=== PATIENT | female | born 1960 ===

== ENCOUNTER 2017-07-18 06:31 | Inpatient (IN) ==
[~2017-07-18 06:31] MED LIST: MAGNESIUM SULF RIDER 2 GM in PREMIX 1 EACH IV PRN; POTASSIUM CHLORIDE RIDER 10 MEQ in PREMIX 1 EACH IV PRN
[2017-07-18] MEDS ORDERED: diphenhydrAMINE CAP 25 MG CAPSULE PO ONE (07:54)
[2017-07-18] MEDS ORDERED: DIAZEPAM 5 MG TABLET PO ONE (07:54)
[2017-07-18] MEDS ORDERED: DIAZEPAM 5 MG TABLET ONE (08:07)
[2017-07-18] MEDS ORDERED: diphenhydrAMINE CAP 25 MG CAPSULE ONE (08:07)
[2017-07-18] MEDS ORDERED: DEXTROSE 50% 25 GM/50 ML VIAL IV PRN (08:17)
[2017-07-18] MEDS ORDERED: ASPIRIN 325 MG TABLET PO ONE (08:20)
[2017-07-18] MEDS ORDERED: SODIUM CHLORIDE 0.9% 1,000 ML IV SCH ×3 (08:30→23:22)
[2017-07-18] MEDS ORDERED: MEPERIDINE 25 MG/1 ML VIAL ONE (08:35)
[2017-07-18] MEDS ORDERED: LIDOCAINE 1% 20 ML VIAL ONE (08:35)
[2017-07-18] MEDS ORDERED: MIDAZOLAM 2 MG/2 ML VIAL ONE (08:35)
[2017-07-18] MEDS ORDERED: HEPARIN 5,000 UNIT/1 ML VIAL ONE (09:00)
[2017-07-18] MEDS ORDERED: NITROGLYCERIN SL 0.4 MG TABLET SL PRN (10:00)
[2017-07-18] MEDS ORDERED: CEFUROXIME INJ 1,500 MG in SODIUM CHLORIDE 0.9% 50 ML IV ONE (10:34)
[2017-07-18] MEDS: CARVEDILOL 12.5 MG TABLET PO SCH ×2 (13:35→21:42)
[2017-07-18 15:27] LABS: Basophils % 0.5 % (0.0-0.8); Eosinophils # 0.1 10*3/uL (0.0-0.87); Eosinophils % 1.4 % (0.00-10.9); Hematocrit 32.1 VOL% (35.7-47.0); Hemoglobin 11.4 GM/DL (12.0-16.0); Immature Granulocytes % 0.3 %; Immature Granulocytes Absolute 0.02 #; Lymphocytes # 1.7 10*3/uL (1.4-4.0); Lymphocytes % 26.7 % (21.3-54.2); Mean Corpuscular HGB Conc 35.5 GM/DL (32-36); Mean Corpuscular Hemoglobin 30 PG (27-34); Mean Corpuscular Volume 83.6 FL (87-102); Mean Platelet Volume 9.1 FL (9.6-12.0); Monocytes # 0.7 10*3/uL (0.11-0.8); Neutrophils # 3.8 10*3/uL (1.4-7.4); Neutrophils % 60.1 % (38.7-73.9); Platelet Count 255 T/CUMM (130-400); Red Blood Count 3.84 MC/CUMM (3.8-5.5); Red Cell Distribution Width 12.6 % (9.3-17.3); White Blood Count 6.3 T/CUMM (4-12)
[2017-07-18 15:58] LABS: Calcium 8.4 MG/DL (8.5-10.1); Magnesium 2.3 MG/DL (1.8-2.4); Osmolality,Calculated 277.8 MOS/KG (273-304); Potassium 3.4 MMOL/L (3.5-5.1)
[2017-07-18] MEDS: SODIUM BICARB INJ 50 MEQ in SODIUM CHLORIDE 0.45% 1,000 ML IV SCH (16:13)
[2017-07-18] MEDS: GABAPENTIN 100 MG CAPSULE PO SCH ×2 (16:13→21:42)
[2017-07-18] MEDS: CHLORHEXIDINE 4% SOLN 118 ML BOTTLE TOP SCH ×2 (16:14→21:43)
[2017-07-18] MEDS ORDERED: CARVEDILOL 3.125 MG TABLET PO SCH (21:00)
[2017-07-18] MEDS ORDERED: ATORVASTATIN 40 MG TABLET PO SCH (21:00)
[2017-07-18] MEDS: CHLORHEXIDINE 0.12% ORAL RINSE 60 ML BOTTLE SWISH/SPIT SCH (22:55)
[2017-07-19] MEDS ORDERED: TISSUE ADHESIVE 1 EACH APPLICATOR TOP ONE (04:40)
[2017-07-19] MEDS ORDERED: PAPAVERINE 60 MG/2 ML VIAL ONE (04:40)
[2017-07-19] MEDS ORDERED: VANCOMYCIN 1,000 MG VIAL ONE (04:40)
[2017-07-19] MEDS ORDERED: FAMOTIDINE 20 MG TABLET PO ONE (05:30)
[2017-07-19] MEDS ORDERED: SODIUM CHLORIDE 0.9% 1,000 ML IV SCH (05:30)
[2017-07-19] MEDS ORDERED: TRANEXAMIC ACID 1,000 MG/10 ML VIAL IV ONE (05:48)
[2017-07-19] MEDS ORDERED: CEFUROXIME INJ 1,500 MG in SODIUM CHLORIDE 0.9% 50 ML IV ONE (06:00)
[2017-07-19] MEDS ORDERED: LORazepam 1 MG TABLET PO ONE (06:00)
[2017-07-19] MEDS ORDERED: FUROSEMIDE 20 MG/2 ML VIAL ONE ×2 (06:46→10:46)
[2017-07-19] MEDS ORDERED: CALCIUM CHLORIDE 1,000 MG/10 ML VIAL IV ONE (06:46)
[2017-07-19] MEDS ORDERED: PHENYLEPHRINE 1 MG/10 ML SYRINGE IV ONE (06:46)
[2017-07-19] MEDS ORDERED: LIDOCAINE 2% 5 ML VIAL ONE (06:46)
[2017-07-19] MEDS ORDERED: VECURONIUM 10 MG VIAL IV ONE (06:46)
[2017-07-19 07:41] LABS: ABG HCO3 23.6 MMOL/L (20-26); ABG Oxygen Saturation 99.9 % (95-100); ABG PCO2 35.9 MM HG (35-48); ABG PH 7.418 (7.35-7.45); ABG TCO2 21.2 MMOL/L (23-27); Glucose Heart Surgery 219 MG/DL (74-106); Hematocrit Heart Surgery 29.6 PERCENT (37-47); Hemoglobin Heart Surgery 9.6 G/DL (12.0-16.0); Ionized Calcium Arterial 1.07 MMOL/L (1.21-1.46); PCO2 Patient Temp Arterial 35.9 MMHG; PH Patient Temp Arterial 7.418; Patient Temperature 37 CELCIUS; Potassium Heart/CVR 3.2 MMOL/L (3.5-5.1); Sodium Heart/CVR 139 MMOL/L (135-145)
[2017-07-19 07:59] LABS: Apearance,Urine CLEAR (Clear); Bilirubin,Urine Negative (Negative); Blood, Urine Small mg/dL (Negative); Glucose,Urine (UA) 150 mg/dL (Negative); Hyaline Casts,Urine 1 /LPF (0-3); Ketones,Urine Negative (Negative); Mucus,Urine Occasional /LPF (Occasional); Nitrite,Urine Negative (Negative); Protein,Urine 100 MG/DL; RBC,Urine 2 /HPF (0-4); Squamous Epithelial Cell,Urine Occasional /HPF (0-10); Urine Color Yellow (Yellow); Urine Specific Gravity 1.011 (1.001-1.035); Urine Urobilinogen < 2.0 EU/DL (0.2-1.0)
[2017-07-19] MEDS ORDERED: LISINOPRIL 20 MG TABLET PO SCH (09:00)
[2017-07-19] MEDS ORDERED: hydroCHLOROthiazide 12.5 MG CAPSULE PO SCH (09:00)
[2017-07-19] MEDS ORDERED: amLODIPine 5 MG TABLET PO SCH (09:00)
[2017-07-19] MEDS ORDERED: MULTIVITAMIN PO SCH (09:00)
[2017-07-19] MEDS ORDERED: MAGNESIUM OXIDE 400 MG TABLET PO SCH (09:00)
[2017-07-19] MEDS ORDERED: ASPIRIN 325 MG TABLET PO SCH (09:00)
[2017-07-19] MEDS ORDERED: SODIUM BICARBONATE 50 MEQ/50 ML SYRINGE IV ONE ×2 (09:04→10:45)
[2017-07-19] MEDS ORDERED: POTASSIUM CHLORIDE RIDER 100 ML IV ONE (09:05)
[2017-07-19] MEDS ORDERED: CALCIUM CHLORIDE 1,000 MG/10 ML SYRINGE IV ONE (09:05)
[2017-07-19] MEDS ORDERED: EPINEPHrine 1 MG/10 ML SYRINGE ONE (09:05)
[2017-07-19] MEDS ORDERED: ALBUMIN 5% 12.5 GM/250 ML VIAL IV ONE ×2 (09:05→10:58)
[2017-07-19 09:11] LABS: Hematocrit Heart Surgery 26.8 PERCENT (37-47); Hemoglobin Heart Surgery 8.6 G/DL (12.0-16.0); PCO2 Patient Temp Venous 34.4 MM HG; PH Patient Temp Venous 7.455; PO2 Patient Temp Venous 38.8 MM HG; Potassium Heart/CVR 4.5 MMOL/L (3.5-5.1); VBG Base Excess 0.7 MEQ/L (0-4); VBG HCO3 24.8 MEQ/L (24-28); VBG Oxygen Saturation 82.6 %; VBG PCO2 37.9 MMHG (41-51); VBG PH 7.426; VBG PO2 44.6 MMHG (17-40)
[2017-07-19 09:41] LABS: Hematocrit Heart Surgery 24.5 PERCENT (37-47); Hemoglobin Heart Surgery 7.9 G/DL (12.0-16.0); PCO2 Patient Temp Venous 30.6 MM HG; PH Patient Temp Venous 7.49; PO2 Patient Temp Venous 37.3 MM HG; Potassium Heart/CVR 3.6 MMOL/L (3.5-5.1); VBG Base Excess 0.5 MEQ/L (0-4); VBG HCO3 24.7 MEQ/L (24-28); VBG Oxygen Saturation 84.4 %; VBG PCO2 35.4 MMHG (41-51); VBG PH 7.445; VBG PO2 45.8 MMHG (17-40)
[2017-07-19] MEDS ORDERED: INSULIN REGULAR DRIP 100 ML IV ONE (10:25)
[2017-07-19] MEDS ORDERED: THROMBIN TOPICAL (RECOMBINANT) 5,000 UNIT VIAL TOP ONE (10:32)
[2017-07-19] MEDS: CARVEDILOL 12.5 MG TABLET PO SCH (10:36)
[2017-07-19] MEDS: CHLORHEXIDINE 0.12% ORAL RINSE 60 ML BOTTLE SWISH/SPIT SCH ×2 (10:36→22:44)
[2017-07-19] MEDS: CHLORHEXIDINE 4% SOLN 118 ML BOTTLE TOP SCH (10:36)
[2017-07-19] MEDS: GABAPENTIN 100 MG CAPSULE PO SCH (10:36)
[2017-07-19 10:44] LABS: ABG HCO3 23.6 MMOL/L (20-26); ABG Oxygen Saturation 99.9 % (95-100); ABG PCO2 36.1 MM HG (35-48); ABG PH 7.417 (7.35-7.45); ABG TCO2 21.6 MMOL/L (23-27); Glucose Heart Surgery 203 MG/DL (74-106); Hematocrit Heart Surgery 25.8 PERCENT (37-47); Hemoglobin Heart Surgery 8.3 G/DL (12.0-16.0); Ionized Calcium Arterial 0.95 MMOL/L (1.21-1.46); PCO2 Patient Temp Arterial 36.1 MMHG; PH Patient Temp Arterial 7.417; Patient Temperature 37 CELCIUS; Potassium Heart/CVR 4.1 MMOL/L (3.5-5.1); Sodium Heart/CVR 136 MMOL/L (135-145)
[2017-07-19] MEDS ORDERED: MANNITOL 12.5 GM/50 ML VIAL IV ONE (10:45)
[2017-07-19] MEDS ORDERED: DEXTROSE 5% KCL 20 MEQ 20 MEQ/1,000 ML BAG IV ONE (10:45)
[2017-07-19] MEDS ORDERED: HEPARIN 10,000 UNIT/10 ML VIAL ONE (10:45)
[2017-07-19] MEDS ORDERED: MAGNESIUM SULFATE 1 GM/2 ML VIAL ONE (10:45)
[2017-07-19] MEDS ORDERED: methylPREDNISolone SOD SUC 1,000 MG/8 ML VIAL ONE (10:45)
[2017-07-19] MEDS ORDERED: ALBUMIN 25% 25 GM/100 ML VIAL IV ONE (10:45)
[2017-07-19] MEDS ORDERED: POTASSIUM CHLORIDE 20 MEQ/10 ML VIAL ONE (10:46)
[2017-07-19] MEDS ORDERED: PROTAMINE SULFATE 50 MG/5 ML VIAL IV ONE (10:46)
[2017-07-19] MEDS: SODIUM CHLORIDE 0.45% 1,000 ML IV SCH ×2 (11:20→11:25)
[2017-07-19] MEDS ORDERED: ACETAMINOPHEN 650 MG SUPP RECTAL PRN (11:37)
[2017-07-19] MEDS ORDERED: DEXTROSE 50% 25 GM/50 ML VIAL IV PRN ×2 (11:37)
[2017-07-19] MEDS ORDERED: ALBUMIN 5% 12.5 GM in PREMIX 1 EACH IV PRN (11:37)
[2017-07-19] MEDS ORDERED: MAGNESIUM SULF RIDER 2 GM in PREMIX 1 EACH IV PRN (11:37)
[2017-07-19] MEDS ORDERED: MIDAZOLAM 2 MG/2 ML VIAL IV PRN (11:37)
[2017-07-19] MEDS ORDERED: CHLORHEXIDINE 4% SOLN 118 ML BOTTLE TOP PRN (11:37)
[2017-07-19] MEDS ORDERED: ONDANSETRON 4 MG/2 ML VIAL IV PRN (11:37)
[2017-07-19] MEDS ORDERED: SODIUM CHLORIDE 0.9% 250 ML IV PRN (11:37)
[2017-07-19] MEDS ORDERED: CALCIUM CHLORIDE 1,000 MG/10 ML SYRINGE IV PRN (11:37)
[2017-07-19] MEDS ORDERED: POTASSIUM CHLORIDE RIDER 10 MEQ in PREMIX 1 EACH IV PRN (11:37)
[2017-07-19] MEDS ORDERED: MORPHINE 10 MG/1 ML VIAL IV PRN (11:37)
[2017-07-19] MEDS ORDERED: MAGNESIUM SULF RIDER 4 GM in PREMIX 1 EACH IV PRN (11:37)
[2017-07-19] MEDS ORDERED: SUFentanil 250 MCG/5 ML AMP ONE (11:41)
[2017-07-19] MEDS ORDERED: SODIUM CHLORIDE 0.9% 200 ML IV ONE (11:42)
[2017-07-19] MEDS ORDERED: SODIUM CHLORIDE 0.9% 750 ML IV ONE (11:42)
[2017-07-19] MEDS ORDERED: SODIUM CHLORIDE 0.9% 2,000 ML IV ONE (11:42)
[2017-07-19] MEDS ORDERED: SEVOFLURANE 1 UNIT/15 MINUTE INH ONE (11:42)
[2017-07-19] MEDS ORDERED: MIDAZOLAM 10 MG/2 ML VIAL ONE (11:42)
[2017-07-19] MEDS ORDERED: LACTATED RINGERS 1,000 ML IV ONE (11:42)
[2017-07-19 11:55] LABS: ABG Base Excess -1.2 MMOL/L (-2.5-2.5); ABG HCO3 23.4 MMOL/L (20-26); ABG PCO2 33.2 MM HG (35-48); ABG PH 7.438 (7.35-7.45); ABG PO2 94.2 MM HG (80-95); ABG TCO2 20.3 MMOL/L (23-27); Glucose Heart Surgery 219 MG/DL (74-106); Hematocrit Heart Surgery 31.1 PERCENT (37-47); Hemoglobin Heart Surgery 10.1 G/DL (12.0-16.0); Potassium Heart/CVR 3.8 MMOL/L (3.5-5.1)
[2017-07-19 11:56] LABS: Basophils % 0.3 % (0.0-0.8); Eosinophils # 0.1 10*3/uL (0.0-0.87); Eosinophils % 0.8 % (0.00-10.9); Hematocrit 28.3 VOL% (35.7-47.0); Immature Granulocytes % 0.7 %; Immature Granulocytes Absolute 0.07 #; Lymphocytes % 9.8 % (21.3-54.2); Mean Corpuscular HGB Conc 35.3 GM/DL (32-36); Mean Corpuscular Hemoglobin 30 PG (27-34); Mean Platelet Volume 8.9 FL (9.6-12.0); Monocytes # 0.5 10*3/uL (0.11-0.8); Monocytes % 4.7 % (1.7-12.7); Neutrophils # 8.7 10*3/uL (1.4-7.4); Neutrophils % 83.7 % (38.7-73.9); Platelet Count 124 T/CUMM (130-400); Red Blood Count 3.37 MC/CUMM (3.8-5.5); Red Cell Distribution Width 13.2 % (9.3-17.3); White Blood Count 10.4 T/CUMM (4-12)
[2017-07-19] MEDS: POTASSIUM CHLORIDE RIDER 20 MEQ in PREMIX 1 EACH IV PRN ×2 (12:00→16:02)
[2017-07-19 12:04] LABS: INR 1.1; PT Patient Result 11.6 SECS
[2017-07-19] MEDS: INSULIN REGULAR 100 UNIT/ML IV PRN ×2 (12:21→13:13)
[2017-07-19 12:30] LABS: Band Neutrophils 4 % (0-10); Giant Platelets Few; Hypochromasia Slight; Lymphocytes 7 % (20-55); Platelet Estimate Normal; Segmented Neutrophils 87 % (50-85); Total Cells Counted 100
[2017-07-19] MEDS ORDERED: INSULIN REGULAR DRIP 100 ML IV SCH (12:30)
[2017-07-19 12:33] LABS: Calcium 7.1 MG/DL (8.5-10.1); Magnesium 2.4 MG/DL (1.8-2.4); Osmolality,Calculated 287.3 MOS/KG (273-304); Potassium 3.9 MMOL/L (3.5-5.1)
[2017-07-19 12:39] LABS: Lactic Acid 0.9 MMOL/L (0.4-2.0)
[2017-07-19] MEDS: SODIUM BICARB INJ 50 MEQ in SODIUM CHLORIDE 0.45% 1,000 ML IV SCH (16:04)
[2017-07-19 17:46] LABS: ABG Base Excess 0.1 MMOL/L (-2.5-2.5); ABG HCO3 24.3 MMOL/L (20-26); ABG Oxygen Saturation 97.5 % (95-100); ABG PCO2 37.8 MM HG (35-48); ABG PH 7.426 (7.35-7.45); ABG PO2 105.5 MM HG (80-95); ABG TCO2 25.5 MMOL/L (23-27); Glucose Heart Surgery 110 MG/DL (74-106); Hemoglobin Heart Surgery 11.8 G/DL (12.0-16.0); Potassium Heart/CVR 4.2 MMOL/L (3.5-5.1)
[2017-07-19] MEDS: MORPHINE 2 MG/1 ML SYRINGE IV PRN ×2 (19:10→22:44)
[2017-07-19] MEDS: CEFUROXIME INJ 1,500 MG in SODIUM CHLORIDE 0.9% 50 ML IV SCH (19:13)
[2017-07-19] MEDS ORDERED: METOPROLOL TARTRATE 5 MG/5 ML VIAL IV PRN (19:28)
[2017-07-20] MEDS: INSULIN REGULAR 100 UNIT/ML SUBCUT SCH ×4 (00:30→18:08)
[2017-07-20] MEDS: SODIUM CHLORIDE 0.45% 1,000 ML IV SCH ×2 (00:31→08:52)
[2017-07-20 03:53] LABS: Basophils % 0.1 % (0.0-0.8); Hematocrit 31.7 VOL% (35.7-47.0); Hemoglobin 11.1 GM/DL (12.0-16.0); Immature Granulocytes % 0.4 %; Immature Granulocytes Absolute 0.06 #; Lymphocytes # 1.1 10*3/uL (1.4-4.0); Lymphocytes % 7.7 % (21.3-54.2); Mean Corpuscular Hemoglobin 30 PG (27-34); Mean Corpuscular Volume 84.3 FL (87-102); Mean Platelet Volume 9.5 FL (9.6-12.0); Monocytes # 0.8 10*3/uL (0.11-0.8); Monocytes % 5.9 % (1.7-12.7); Neutrophils # 11.8 10*3/uL (1.4-7.4); Neutrophils % 85.9 % (38.7-73.9); Platelet Count 157 T/CUMM (130-400); Red Blood Count 3.76 MC/CUMM (3.8-5.5); Red Cell Distribution Width 13.4 % (9.3-17.3); White Blood Count 13.7 T/CUMM (4-12)
[2017-07-20 04:11] LABS: Calcium 7.4 MG/DL (8.5-10.1); Osmolality,Calculated 285.4 MOS/KG (273-304); Potassium 4.3 MMOL/L (3.5-5.1)
[2017-07-20] MEDS: MORPHINE 2 MG/1 ML SYRINGE IV PRN ×4 (04:13→22:00)
[2017-07-20 05:01] LABS: Platelet Estimate Adequate
[2017-07-20] MEDS: CEFUROXIME INJ 1,500 MG in SODIUM CHLORIDE 0.9% 50 ML IV SCH (07:04)
[2017-07-20] MEDS: CHLORHEXIDINE 0.12% ORAL RINSE 60 ML BOTTLE SWISH/SPIT SCH ×2 (10:03→22:09)
[2017-07-20] MEDS: CARVEDILOL 3.125 MG TABLET PO SCH ×2 (10:04→21:58)
[2017-07-20] MEDS: CLOPIDOGREL 75 MG TABLET PO SCH (10:04)
[2017-07-20] MEDS: ATORVASTATIN 40 MG TABLET PO SCH ×2 (11:50→21:59)
[2017-07-20] MEDS: FUROSEMIDE 40 MG TABLET PO SCH (11:51)
[2017-07-20] MEDS: ASPIRIN EC 325 MG TABLET PO SCH (11:51)
[2017-07-21] MEDS: CEFUROXIME INJ 1,500 MG in SODIUM CHLORIDE 0.9% 50 ML IV SCH (01:05)
[2017-07-21] MEDS: MORPHINE 2 MG/1 ML SYRINGE IV PRN ×5 (01:35→22:09)
[2017-07-21] MEDS: INSULIN REGULAR 100 UNIT/ML SUBCUT SCH ×4 (01:35→18:08)
[2017-07-21 05:56] LABS: Basophils % 0.2 % (0.0-0.8); Hematocrit 27.5 VOL% (35.7-47.0); Hemoglobin 9.3 GM/DL (12.0-16.0); Immature Granulocytes % 0.4 %; Immature Granulocytes Absolute 0.05 #; Lymphocytes # 1.3 10*3/uL (1.4-4.0); Lymphocytes % 11.9 % (21.3-54.2); Mean Corpuscular HGB Conc 33.8 GM/DL (32-36); Mean Corpuscular Hemoglobin 29 PG (27-34); Mean Corpuscular Volume 86.5 FL (87-102); Mean Platelet Volume 10.1 FL (9.6-12.0); Monocytes # 1.2 10*3/uL (0.11-0.8); Monocytes % 10.6 % (1.7-12.7); Neutrophils # 8.6 10*3/uL (1.4-7.4); Neutrophils % 76.9 % (38.7-73.9); Platelet Count 153 T/CUMM (130-400); Red Blood Count 3.18 MC/CUMM (3.8-5.5); Red Cell Distribution Width 13.6 % (9.3-17.3); White Blood Count 11.1 T/CUMM (4-12)
[2017-07-21 06:15] LABS: Calcium 7.4 MG/DL (8.5-10.1); Magnesium 2.2 MG/DL (1.8-2.4); Osmolality,Calculated 278.7 MOS/KG (273-304); Potassium 3.6 MMOL/L (3.5-5.1)
[2017-07-21 06:27] LABS: Calcium 7.6 MG/DL (8.5-10.1); Magnesium 2.1 MG/DL (1.8-2.4); Osmolality,Calculated 280.5 MOS/KG (273-304); Potassium 3.6 MMOL/L (3.5-5.1)
[2017-07-21] MEDS: CLOPIDOGREL 75 MG TABLET PO SCH (09:12)
[2017-07-21] MEDS: FUROSEMIDE 40 MG TABLET PO SCH (09:12)
[2017-07-21] MEDS: CHLORHEXIDINE 0.12% ORAL RINSE 60 ML BOTTLE SWISH/SPIT SCH ×2 (09:13→22:08)
[2017-07-21] MEDS: CARVEDILOL 3.125 MG TABLET PO SCH ×2 (09:13→22:08)
[2017-07-21] MEDS: ASPIRIN EC 325 MG TABLET PO SCH (09:13)
[2017-07-21] MEDS ORDERED: ZOLPIDEM 5 MG TABLET PO PRN (20:54)
[2017-07-21] MEDS: ATORVASTATIN 40 MG TABLET PO SCH (22:07)
[2017-07-22] MEDS: INSULIN REGULAR 100 UNIT/ML SUBCUT SCH ×7 (01:11→21:36)
[2017-07-22 05:30] LABS: Basophils % 0.3 % (0.0-0.8); Eosinophils % 0.3 % (0.00-10.9); Hematocrit 27.2 VOL% (35.7-47.0); Hemoglobin 9.1 GM/DL (12.0-16.0); Immature Granulocytes % 0.8 %; Immature Granulocytes Absolute 0.08 #; Lymphocytes # 1.4 10*3/uL (1.4-4.0); Lymphocytes % 13.3 % (21.3-54.2); Mean Corpuscular HGB Conc 33.5 GM/DL (32-36); Mean Corpuscular Hemoglobin 29 PG (27-34); Mean Corpuscular Volume 86.6 FL (87-102); Mean Platelet Volume 10.2 FL (9.6-12.0); Monocytes # 1.1 10*3/uL (0.11-0.8); Monocytes % 10.5 % (1.7-12.7); Neutrophils # 7.8 10*3/uL (1.4-7.4); Neutrophils % 74.8 % (38.7-73.9); Platelet Count 174 T/CUMM (130-400); Red Blood Count 3.14 MC/CUMM (3.8-5.5); Red Cell Distribution Width 13.4 % (9.3-17.3); White Blood Count 10.4 T/CUMM (4-12)
[2017-07-22 05:47] LABS: Calcium 7.5 MG/DL (8.5-10.1); Magnesium 2.3 MG/DL (1.8-2.4); Osmolality,Calculated 286.7 MOS/KG (273-304); Potassium 3.7 MMOL/L (3.5-5.1)
[2017-07-22] MEDS ORDERED: FUROSEMIDE 40 MG/4 ML VIAL IV ONE (09:02)
[2017-07-22] MEDS: CARVEDILOL 3.125 MG TABLET PO SCH (10:31)
[2017-07-22] MEDS: FUROSEMIDE 40 MG TABLET PO SCH (10:32)
[2017-07-22] MEDS: CLOPIDOGREL 75 MG TABLET PO SCH (10:32)
[2017-07-22] MEDS: CHLORHEXIDINE 0.12% ORAL RINSE 60 ML BOTTLE SWISH/SPIT SCH ×2 (10:33→21:38)
[2017-07-22] MEDS: ASPIRIN EC 325 MG TABLET PO SCH (10:33)
[2017-07-22] MEDS ORDERED: CARVEDILOL 12.5 MG TABLET PO SCH (11:05)
[2017-07-22] MEDS: MORPHINE 2 MG/1 ML SYRINGE IV PRN (14:35)
[2017-07-22] MEDS ORDERED: SODIUM CHLORIDE 0.65% NASAL SPRAY 45 ML BOTTLE BOTH NARES PRN (15:07)
[2017-07-22] MEDS: CYCLOBENZAPRINE 10 MG TABLET PO SCH (18:25)
[2017-07-22] MEDS ORDERED: INSULIN GLARGINE 100 UNIT/ML SUBCUT SCH (21:00)
[2017-07-22] MEDS: ATORVASTATIN 40 MG TABLET PO SCH (21:33)
[2017-07-22] MEDS: INSULIN GLARGINE 100 UNIT/ML SUBCUT SCH (21:34)
[2017-07-23 03:09] LABS: Basophils % 0.3 % (0.0-0.8); Eosinophils # 0.1 10*3/uL (0.0-0.87); Eosinophils % 0.9 % (0.00-10.9); Hematocrit 25.8 VOL% (35.7-47.0); Hemoglobin 8.8 GM/DL (12.0-16.0); Immature Granulocytes % 0.9 %; Immature Granulocytes Absolute 0.09 #; Lymphocytes # 1.5 10*3/uL (1.4-4.0); Lymphocytes % 15.8 % (21.3-54.2); Mean Corpuscular HGB Conc 34.1 GM/DL (32-36); Mean Corpuscular Hemoglobin 29 PG (27-34); Mean Corpuscular Volume 84.6 FL (87-102); Mean Platelet Volume 9.8 FL (9.6-12.0); Monocytes # 0.9 10*3/uL (0.11-0.8); Monocytes % 8.8 % (1.7-12.7); Neutrophils # 7.2 10*3/uL (1.4-7.4); Neutrophils % 73.3 % (38.7-73.9); Platelet Count 208 T/CUMM (130-400); Red Blood Count 3.05 MC/CUMM (3.8-5.5); Red Cell Distribution Width 13.3 % (9.3-17.3); White Blood Count 9.8 T/CUMM (4-12)
[2017-07-23 04:14] LABS: Calcium 7.5 MG/DL (8.5-10.1); Magnesium 2.4 MG/DL (1.8-2.4); Osmolality,Calculated 282.4 MOS/KG (273-304); Potassium 3.3 MMOL/L (3.5-5.1)
[2017-07-23] MEDS ORDERED: INSULIN DETEMIR 100 UNIT/ML SUBCUT SCH (09:00)
[2017-07-23] MEDS: ASPIRIN EC 325 MG TABLET PO SCH (10:23)
[2017-07-23] MEDS: CARVEDILOL 3.125 MG TABLET PO SCH ×2 (10:24→21:35)
[2017-07-23] MEDS: CYCLOBENZAPRINE 10 MG TABLET PO SCH (10:24)
[2017-07-23] MEDS: FUROSEMIDE 40 MG TABLET PO SCH (10:24)
[2017-07-23] MEDS: CLOPIDOGREL 75 MG TABLET PO SCH (10:25)
[2017-07-23] MEDS: INSULIN ASPART PROTAMINE/ASPART 70/30 100 UNIT/ML SUBCUT SCH ×3 (10:25→18:09)
[2017-07-23] MEDS: INSULIN REGULAR 100 UNIT/ML SUBCUT SCH ×4 (10:25→21:35)
[2017-07-23] MEDS: CHLORHEXIDINE 0.12% ORAL RINSE 60 ML BOTTLE SWISH/SPIT SCH ×2 (10:27→21:41)
[2017-07-23] MEDS ORDERED: POTASSIUM CHLORIDE 20 MEQ TABLET PO ONE (21:18)
[2017-07-23] MEDS ORDERED: SODIUM PHOSPHATE ENEMA 133 ML BOTTLE RECTAL ONE (21:20)
[2017-07-23] MEDS ORDERED: BISACODYL 5 MG TABLET PO ONE (21:22)
[2017-07-23] MEDS ORDERED: MAGNESIUM HYDROXIDE SUSP 30 ML UDCUP PO ONE (21:23)
[2017-07-23] MEDS: ATORVASTATIN 40 MG TABLET PO SCH (21:34)
[2017-07-23] MEDS: INSULIN GLARGINE 100 UNIT/ML SUBCUT SCH (21:36)
[2017-07-24 05:51] LABS: Calcium 7.6 MG/DL (8.5-10.1); Magnesium 2.4 MG/DL (1.8-2.4); Osmolality,Calculated 280.5 MOS/KG (273-304)
[2017-07-24 08:31] VITALS: BP 153/71
[2017-07-24 08:37] LABS: Basophils % 0.2 % (0.0-0.8); Eosinophils # 0.2 10*3/uL (0.0-0.87); Eosinophils % 1.9 % (0.00-10.9); Hematocrit 27.1 VOL% (35.7-47.0); Hemoglobin 9.4 GM/DL (12.0-16.0); Immature Granulocytes Absolute 0.09 #; Lymphocytes # 1.4 10*3/uL (1.4-4.0); Lymphocytes % 15.8 % (21.3-54.2); Mean Corpuscular HGB Conc 34.7 GM/DL (32-36); Mean Corpuscular Hemoglobin 30 PG (27-34); Mean Platelet Volume 9.4 FL (9.6-12.0); Monocytes # 0.8 10*3/uL (0.11-0.8); Monocytes % 8.7 % (1.7-12.7); Neutrophils # 6.3 10*3/uL (1.4-7.4); Neutrophils % 72.4 % (38.7-73.9); Platelet Count 264 T/CUMM (130-400); Red Blood Count 3.15 MC/CUMM (3.8-5.5); Red Cell Distribution Width 13.4 % (9.3-17.3); White Blood Count 8.8 T/CUMM (4-12)
[2017-07-24] MEDS: FUROSEMIDE 40 MG TABLET PO SCH (09:20)
[2017-07-24] MEDS: CYCLOBENZAPRINE 10 MG TABLET PO SCH (09:20)
[2017-07-24] MEDS: CLOPIDOGREL 75 MG TABLET PO SCH (09:20)
[2017-07-24] MEDS: CARVEDILOL 3.125 MG TABLET PO SCH (09:20)
[2017-07-24] MEDS: INSULIN ASPART PROTAMINE/ASPART 70/30 100 UNIT/ML SUBCUT SCH (09:21)
[2017-07-24] MEDS: INSULIN REGULAR 100 UNIT/ML SUBCUT SCH (09:21)
[2017-07-24] MEDS: ASPIRIN EC 325 MG TABLET PO SCH (09:21)
[2017-07-25] MEDS ORDERED: ERGOCALCIFEROL 50,000 UNIT CAPSULE PO SCH (09:00)
== END 2017-07-24 11:48 | disposition home health service (06) | DRG 234 ==
LOC: N.CL 06:31 → N.TELES 10:35 → N.CVR 07-19 09:28 → N.TELES 07-20 14:52
PROVIDERS: ADMIT Internal Medicine Cardiovascular Disease; ATTEND Internal Medicine Cardiovascular Disease
PROC: CLCCHCL (ICD-10-PCS; 2017-07-18 07:45)

== ENCOUNTER 2017-07-28 02:09 | Inpatient (IN) ==
[2017-07-28] MEDS ORDERED: ONDANSETRON 4 MG/2 ML VIAL IV STA (02:24)
[2017-07-28] MEDS ORDERED: SODIUM CHLORIDE 0.9% 500 ML IV STA (02:24)
[2017-07-28] MEDS ORDERED: ONDANSETRON 4 MG/2 ML VIAL ONE (02:39)
[2017-07-28 03:07] LABS: Basophils % 0.2 % (0.0-0.8); Eosinophils # 0.2 10*3/uL (0.0-0.87); Eosinophils % 2.4 % (0.00-10.9); Hemoglobin 9.1 GM/DL (12.0-16.0); Immature Granulocytes % 1.2 %; Immature Granulocytes Absolute 0.11 #; Lymphocytes % 21.6 % (21.3-54.2); Mean Corpuscular HGB Conc 37.9 GM/DL (32-36); Mean Corpuscular Hemoglobin 34 PG (27-34); Mean Corpuscular Volume 89.9 FL (87-102); Mean Platelet Volume 8.9 FL (9.6-12.0); Monocytes # 0.8 10*3/uL (0.11-0.8); Monocytes % 9.2 % (1.7-12.7); NRBC # 0.02 10*3/uL; Neutrophils # 5.9 10*3/uL (1.4-7.4); Neutrophils % 65.4 % (38.7-73.9); PT Patient Result 10.3 SECS; Platelet Count 436 T/CUMM (130-400); Red Blood Count 2.67 MC/CUMM (3.8-5.5); Red Cell Distribution Width 13.9 % (9.3-17.3); White Blood Count 9.1 T/CUMM (4-12)
[2017-07-28 03:09] LABS: Albumin 2.4 G/DL (3.4-5.0); Bilirubin,Total 0.4 MG/DL (0.2-1.0); Calcium 7.7 MG/DL (8.5-10.1); Magnesium 2.4 MG/DL (1.8-2.4); Osmolality,Calculated 276.4 MOS/KG (273-304); Potassium 3.7 MMOL/L (3.5-5.1); Total Protein 5.6 G/DL (6.4-8.3)
[2017-07-28 03:11] LABS: Troponin I Only 0.057 NG/ML (0.00-0.045)
[2017-07-28] MEDS ORDERED: DEXTROSE 50% 25 GM/50 ML VIAL IV STA (03:25)
[2017-07-28] MEDS ORDERED: DEXTROSE 50% 25 GM/50 ML SYRINGE IV ONE (03:25)
[2017-07-28] MEDS ORDERED: MORPHINE 2 MG/1 ML SYRINGE IV PRN (03:32)
[2017-07-28] MEDS ORDERED: MAGNESIUM SULF RIDER 4 GM in PREMIX 1 EACH IV PRN (03:32)
[2017-07-28] MEDS ORDERED: POTASSIUM CHLORIDE 20 MEQ TABLET PO PRN (03:32)
[2017-07-28] MEDS ORDERED: DEXTROSE 50% 25 GM/50 ML VIAL IV PRN (03:32)
[2017-07-28] MEDS ORDERED: GLUCAGON 1 MG VIAL IM PRN (03:32)
[2017-07-28] MEDS ORDERED: MAGNESIUM SULF RIDER 2 GM in PREMIX 1 EACH IV PRN (03:32)
[2017-07-28 05:07] LABS: Basophils % 0.1 % (0.0-0.8); Eosinophils # 0.2 10*3/uL (0.0-0.87); Eosinophils % 2.5 % (0.00-10.9); Hematocrit 23.9 VOL% (35.7-47.0); Hemoglobin 8.8 GM/DL (12.0-16.0); Immature Granulocytes % 1.3 %; Immature Granulocytes Absolute 0.12 #; Lymphocytes # 1.7 10*3/uL (1.4-4.0); Lymphocytes % 18.8 % (21.3-54.2); Mean Corpuscular HGB Conc 36.8 GM/DL (32-36); Mean Corpuscular Hemoglobin 33 PG (27-34); Mean Corpuscular Volume 90.5 FL (87-102); Mean Platelet Volume 8.7 FL (9.6-12.0); Monocytes # 0.8 10*3/uL (0.11-0.8); Monocytes % 9.1 % (1.7-12.7); Neutrophils # 6.1 10*3/uL (1.4-7.4); Neutrophils % 68.2 % (38.7-73.9); Platelet Count 391 T/CUMM (130-400); Red Blood Count 2.64 MC/CUMM (3.8-5.5); Red Cell Distribution Width 14.1 % (9.3-17.3); White Blood Count 8.9 T/CUMM (4-12)
[2017-07-28] MEDS ORDERED: PNEUMOCOCCAL VACCINE (23 VALENT) 0.5 ML VIAL IM ONE (05:17)
[2017-07-28] MEDS ORDERED: INFLUENZA VIRUS VACCINE 0.5 ML SYRINGE IM ONE (05:17)
[2017-07-28 05:38] LABS: Burr Cells Slight; Giant Platelets Few; Hypochromasia Slight; Platelet Estimate Increased
[2017-07-28 05:52] LABS: Albumin 2.3 G/DL (3.4-5.0); Bilirubin,Total 0.5 MG/DL (0.2-1.0); Calcium 7.9 MG/DL (8.5-10.1); Magnesium 2.5 MG/DL (1.8-2.4); Osmolality,Calculated 278.5 MOS/KG (273-304); Potassium 3.9 MMOL/L (3.5-5.1); Risk Ratio 4.09; Total Protein 5.5 G/DL (6.4-8.3); VLDL CHOLESTEROL 26.4 MG/DL
[2017-07-28 06:04] LABS: Troponin I Only 0.052 NG/ML (0.00-0.045)
[2017-07-28] MEDS ORDERED: SODIUM CHLORIDE 0.9% 250 ML IV PRN (08:14)
[2017-07-28] MEDS ORDERED: FUROSEMIDE 40 MG/4 ML VIAL IV ONE (08:15)
[2017-07-28 09:22] LABS: Apearance,Urine Slightly Hazy (Clear); Bilirubin,Urine Negative (Negative); Blood, Urine Small mg/dL (Negative); Glucose,Urine (UA) 150 mg/dL (Negative); Hyaline Casts,Urine 5 /LPF (0-3); Ketones,Urine 5 mg/dL (Negative); Mucus,Urine Occasional /LPF (Occasional); Nitrite,Urine Negative (Negative); Protein,Urine 30 MG/DL; RBC,Urine 3 /HPF (0-4); Squamous Epithelial Cell,Urine Occasional /HPF (0-10); Urine Color Yellow (Yellow); Urine Specific Gravity 1.011 (1.001-1.035); Urine Urobilinogen < 2.0 EU/DL (0.2-1.0); WBC,Urine 8 /HPF (0-6)
[2017-07-28] MEDS ORDERED: ERGOCALCIFEROL 50,000 UNIT CAPSULE PO SCH (09:30)
[2017-07-28] MEDS: INSULIN REGULAR 100 UNIT/ML SUBCUT SCH ×4 (09:32→20:31)
[2017-07-28] MEDS: PANTOPRAZOLE 40 MG TABLET PO SCH (09:51)
[2017-07-28] MEDS: CLOPIDOGREL 75 MG TABLET PO SCH (10:38)
[2017-07-28] MEDS: hydroCHLOROthiazide 12.5 MG CAPSULE PO SCH (10:38)
[2017-07-28] MEDS: ASPIRIN EC 325 MG TABLET PO SCH (10:38)
[2017-07-28] MEDS: CYCLOBENZAPRINE 10 MG TABLET PO SCH (10:38)
[2017-07-28] MEDS: INSULIN GLARGINE 100 UNIT/ML SUBCUT SCH (10:38)
[2017-07-28] MEDS: MULTIVITAMIN (CENTRUM) TABLET PO SCH (10:38)
[2017-07-28] MEDS: FUROSEMIDE 40 MG TABLET PO SCH (10:39)
[2017-07-28] MEDS: INSULIN LISPRO 100 UNIT/ML SUBCUT SCH ×2 (12:55→17:42)
[2017-07-28 13:01] LABS: Troponin I Only 0.042 NG/ML (0.00-0.045)
[2017-07-28] MEDS ORDERED: BISACODYL 5 MG TABLET PO PRN (15:52)
[2017-07-28] MEDS ORDERED: ATORVASTATIN 40 MG TABLET PO SCH (21:00)
[2017-07-29 00:12] LABS: Troponin I Only 0.037 NG/ML (0.00-0.045)
[2017-07-29 05:57] LABS: Hematocrit 31.2 VOL% (35.7-47.0); Hemoglobin 11.5 GM/DL (12.0-16.0)
[2017-07-29] MEDS: ASPIRIN EC 325 MG TABLET PO SCH (09:19)
[2017-07-29] MEDS: INSULIN LISPRO 100 UNIT/ML SUBCUT SCH ×2 (09:19→13:24)
[2017-07-29] MEDS: CYCLOBENZAPRINE 10 MG TABLET PO SCH (09:20)
[2017-07-29] MEDS: CLOPIDOGREL 75 MG TABLET PO SCH (09:20)
[2017-07-29] MEDS: hydroCHLOROthiazide 12.5 MG CAPSULE PO SCH (09:20)
[2017-07-29] MEDS: PANTOPRAZOLE 40 MG TABLET PO SCH (09:20)
[2017-07-29] MEDS: FUROSEMIDE 40 MG TABLET PO SCH (09:20)
[2017-07-29] MEDS: MULTIVITAMIN (CENTRUM) TABLET PO SCH (09:20)
[2017-07-29] MEDS: INSULIN GLARGINE 100 UNIT/ML SUBCUT SCH (09:20)
[2017-07-29] MEDS: INSULIN REGULAR 100 UNIT/ML SUBCUT SCH ×2 (09:33→13:24)
[2017-07-29 12:52] VITALS: BP 140/80
== END 2017-07-29 14:10 | disposition home health service (06) | DRG 149 ==
LOC: EDUNIT# → N.ED 02:09 → N.EDINP 02:44 → N.TELEN 03:30
PROVIDERS: ADMIT Thoracic Surgery (Cardiothoracic Vascular Surgery); ATTEND Thoracic Surgery (Cardiothoracic Vascular Surgery)

== ENCOUNTER 2022-09-08 16:15 | Inpatient (IN) ==
[2022-09-08] MEDS ORDERED: MORPHINE 2 MG/1 ML SYRINGE IV PRN (21:17)
[2022-09-08] MEDS ORDERED: hydrALAZINE 20 MG/1 ML VIAL IV PRN (21:17)
[2022-09-08] MEDS ORDERED: DEXTROSE 10% 250 ML BAG IV PRN (21:17)
[2022-09-08] MEDS ORDERED: ONDANSETRON 4 MG/2 ML VIAL IV PRN (21:17)
[2022-09-08] MEDS ORDERED: GLUCAGON 1 MG VIAL IM PRN (21:17)
[2022-09-08] MEDS ORDERED: ACETAMINOPHEN 325 MG TABLET PO PRN (21:17)
[2022-09-08] MEDS ORDERED: POTASSIUM CHLORIDE 20 MEQ TABLET PO PRN (21:17)
[2022-09-08 21:23] LABS: Basophils % 0.3 % (0.0-0.8); Eosinophils # 0.2 10*3/uL (0.0-0.87); Eosinophils % 1.5 % (0.00-10.9); Hematocrit 28.7 VOL% (35.7-47.0); Hemoglobin 9.8 GM/DL (12.0-16.0); Immature Granulocytes % 0.7 %; Immature Granulocytes Absolute 0.07 #; Lymphocytes % 9.9 % (21.3-54.2); Mean Corpuscular HGB Conc 34.1 GM/DL (32-36); Mean Corpuscular Volume 81.3 FL (87-102); Monocytes % 9.6 % (1.7-12.7); Platelet Count 307 T/CUMM (130-400); Red Blood Count 3.53 MC/CUMM (3.8-5.5); Red Cell Distribution Width 13.3 % (9.3-17.3); White Blood Count 10.4 T/CUMM (4-12)
[2022-09-08 21:35] LABS: INR 0.9; PT Patient Result 9.6 SECS (10.1-12.1); Partial Thromboplastin Time 25.6 SECS (23.7-32.9)
[2022-09-08 21:42] LABS: Alanine Aminotransferase 14 U/L (13-56); Albumin 2.1 G/DL (3.4-5.0); Alkaline Phosphatase 132 U/L (45-117); Aspartate Amino Transferase 11 U/L (0-37); Bilirubin,Total < 0.39 MG/DL (0.20-1.00); Blood Urea Nitrogen 28 MG/DL (7-18); Carbon Dioxide 26 MMOL/L (21-32); Chloride 101 MMOL/L (98-107); Glucose 104 MG/DL (74-106); Osmolality,Calculated 275.1 MOS/KG (273-304); Potassium 2.8 MMOL/L (3.5-5.1); Sodium 135 MMOL/L (136-145); Total Protein 5.6 G/DL (6.4-8.2)
[2022-09-08] MEDS ORDERED: ENOXAPARIN 80 MG/0.8 ML SYRINGE SUBCUT ONE (22:30)
[2022-09-08] MEDS ORDERED: GABAPENTIN 100 MG CAPSULE PO ONE (22:40)
[2022-09-08] MEDS ORDERED: POTASSIUM CHLORIDE 20 MEQ TABLET PO ONE (23:00)
[2022-09-09 06:01] LABS: Basophils % 0.3 % (0.0-0.8); Eosinophils # 0.2 10*3/uL (0.0-0.87); Eosinophils % 1.8 % (0.00-10.9); Hematocrit 29.6 VOL% (35.7-47.0); Hemoglobin 9.8 GM/DL (12.0-16.0); Immature Granulocytes % 1.1 %; Immature Granulocytes Absolute 0.11 #; Lymphocytes # 1.3 10*3/uL (1.4-4.0); Mean Corpuscular HGB Conc 33.1 GM/DL (32-36); Mean Corpuscular Volume 82.2 FL (87-102); Mean Platelet Volume 9.6 FL (9.6-12.0); Monocytes # 0.9 10*3/uL (0.11-0.8); Monocytes % 8.9 % (1.7-12.7); Neutrophils % 74.9 % (38.7-73.9); Platelet Count 326 T/CUMM (130-400); Red Cell Distribution Width 13.4 % (9.3-17.3); White Blood Count 9.6 T/CUMM (4-12)
[2022-09-09 06:13] LABS: Calcium 8.2 MG/DL (8.5-10.1); Osmolality,Calculated 276.8 MOS/KG (273-304); Potassium 3.2 MMOL/L (3.5-5.1)
[2022-09-09] MEDS ORDERED: FUROSEMIDE 40 MG/4 ML VIAL IV SCH (08:00)
[2022-09-09] MEDS ORDERED: POTASSIUM CHLORIDE 20 MEQ TABLET PO ONE (08:36)
[2022-09-09] MEDS ORDERED: carvediloL 3.125 MG TABLET PO SCH (09:00)
[2022-09-09] MEDS ORDERED: hydroCHLOROthiazide 12.5 MG CAPSULE PO SCH (09:00)
[2022-09-09] MEDS: PANTOPRAZOLE 40 MG TABLET PO SCH (09:51)
[2022-09-09] MEDS: MAGNESIUM OXIDE 400 MG TABLET PO SCH (09:51)
[2022-09-09] MEDS: MULTIVITAMIN (CENTRUM) TABLET PO SCH (09:52)
[2022-09-09] MEDS: ASPIRIN EC 325 MG TABLET PO SCH (09:52)
[2022-09-09] MEDS: POTASSIUM CHLORIDE 10 MEQ TABLET PO SCH (09:56)
[2022-09-09] MEDS: INSULIN LISPRO 100 UNIT/ML SUBCUT SCH ×4 (09:57→21:55)
[2022-09-09] MEDS ORDERED: NITROGLYCERIN SL 0.4 MG TABLET SL PRN (13:04)
[2022-09-09] MEDS: metOLazone 5 MG TABLET PO SCH (17:44)
[2022-09-09] MEDS: FUROSEMIDE 20 MG TABLET PO SCH (17:44)
[2022-09-09] MEDS ORDERED: ENOXAPARIN 40 MG/0.4 ML SYRINGE SUBCUT SCH (21:00)
[2022-09-09] MEDS: carvediloL 3.125 MG TABLET PO SCH (21:56)
[2022-09-09] MEDS: GABAPENTIN 100 MG CAPSULE PO SCH (21:56)
[2022-09-09] MEDS: ATORVASTATIN 40 MG TABLET PO SCH (21:57)
[2022-09-09 22:37] LABS: Hyaline Casts,Urine 1 /LPF (0-3); Mucus,Urine Occasional /LPF (Occasional); Protein,Urine >=300 mg/dL (Negative); RBC,Urine 121 /HPF (0-4); Squamous Epithelial Cell,Urine Occasional /HPF (0-10); Urine Appearance Clear (Clear); Urine Color Yellow (Yellow); Urine pH 6.5 (4.5-8.0)
[2022-09-09 22:38] LABS: Bilirubin,Urine Negative (Negative); Blood, Urine Large mg/dL (Negative); Glucose,Urine (UA) 250 mg/dL (Negative); Ketones,Urine Negative (Negative); Nitrite,Urine Negative (Negative); Urine Urobilinogen 0.2 eU/dL (<2.0)
[2022-09-10 05:20] LABS: Basophils % 0.2 % (0.0-0.8); Eosinophils # 0.3 10*3/uL (0.0-0.87); Eosinophils % 2.9 % (0.00-10.9); Hematocrit 28.5 VOL% (35.7-47.0); Hemoglobin 9.4 GM/DL (12.0-16.0); Immature Granulocytes % 0.7 %; Immature Granulocytes Absolute 0.06 #; Lymphocytes # 1.2 10*3/uL (1.4-4.0); Lymphocytes % 13.9 % (21.3-54.2); Mean Corpuscular Volume 85.1 FL (87-102); Monocytes # 0.8 10*3/uL (0.11-0.8); Monocytes % 8.5 % (1.7-12.7); Neutrophils % 73.8 % (38.7-73.9); Platelet Count 303 T/CUMM (130-400); Red Blood Count 3.35 MC/CUMM (3.8-5.5); Red Cell Distribution Width 13.5 % (9.3-17.3)
[2022-09-10 05:34] LABS: Calcium 7.4 MG/DL (8.5-10.1); Osmolality,Calculated 291.5 MOS/KG (273-304); Potassium 4.3 MMOL/L (3.5-5.1)
[2022-09-10] MEDS: FUROSEMIDE 20 MG TABLET PO SCH ×2 (08:24→16:54)
[2022-09-10] MEDS: MULTIVITAMIN (CENTRUM) TABLET PO SCH (08:24)
[2022-09-10] MEDS: metOLazone 5 MG TABLET PO SCH (08:24)
[2022-09-10] MEDS: ASPIRIN EC 325 MG TABLET PO SCH (08:25)
[2022-09-10] MEDS: POTASSIUM CHLORIDE 10 MEQ TABLET PO SCH (08:25)
[2022-09-10] MEDS: carvediloL 3.125 MG TABLET PO SCH (08:25)
[2022-09-10] MEDS: INSULIN LISPRO 100 UNIT/ML SUBCUT SCH ×4 (08:25→21:04)
[2022-09-10] MEDS: PANTOPRAZOLE 40 MG TABLET PO SCH (08:25)
[2022-09-10] MEDS: MAGNESIUM OXIDE 400 MG TABLET PO SCH (08:25)
[2022-09-10] MEDS ORDERED: INSULIN LISPRO 100 UNIT/ML SUBCUT ONE (09:34)
[2022-09-10] MEDS ORDERED: INSULIN GLARGINE 100 UNIT/ML SUBCUT SCH (21:00)
[2022-09-10] MEDS: GABAPENTIN 100 MG CAPSULE PO SCH (21:04)
[2022-09-10] MEDS: carvediloL 25 MG TABLET PO SCH (21:04)
[2022-09-10] MEDS: ATORVASTATIN 40 MG TABLET PO SCH (21:07)
[2022-09-11 05:37] LABS: Basophils % 0.3 % (0.0-0.8); Eosinophils # 0.3 10*3/uL (0.0-0.87); Eosinophils % 4.1 % (0.00-10.9); Hematocrit 28.4 VOL% (35.7-47.0); Hemoglobin 9.5 GM/DL (12.0-16.0); Immature Granulocytes % 0.5 %; Immature Granulocytes Absolute 0.03 #; Lymphocytes # 1.5 10*3/uL (1.4-4.0); Lymphocytes % 22.6 % (21.3-54.2); Mean Corpuscular HGB Conc 33.5 GM/DL (32-36); Mean Corpuscular Volume 84.8 FL (87-102); Mean Platelet Volume 9.2 FL (9.6-12.0); Monocytes # 0.6 10*3/uL (0.11-0.8); Monocytes % 9.8 % (1.7-12.7); Neutrophils % 62.7 % (38.7-73.9); Platelet Count 310 T/CUMM (130-400); Red Blood Count 3.35 MC/CUMM (3.8-5.5); Red Cell Distribution Width 13.4 % (9.3-17.3); White Blood Count 6.6 T/CUMM (4-12)
[2022-09-11 05:51] LABS: Calcium 8.2 MG/DL (8.5-10.1); Osmolality,Calculated 284.7 MOS/KG (273-304); Potassium 3.8 MMOL/L (3.5-5.1)
[2022-09-11] MEDS: INSULIN LISPRO 100 UNIT/ML SUBCUT SCH ×4 (07:49→22:07)
[2022-09-11] MEDS: POTASSIUM CHLORIDE 10 MEQ TABLET PO SCH (09:09)
[2022-09-11] MEDS: MAGNESIUM OXIDE 400 MG TABLET PO SCH (09:09)
[2022-09-11] MEDS: ASPIRIN EC 325 MG TABLET PO SCH (09:09)
[2022-09-11] MEDS: MULTIVITAMIN (CENTRUM) TABLET PO SCH (09:09)
[2022-09-11] MEDS: PANTOPRAZOLE 40 MG TABLET PO SCH (09:10)
[2022-09-11] MEDS: metOLazone 5 MG TABLET PO SCH (09:10)
[2022-09-11] MEDS: carvediloL 25 MG TABLET PO SCH ×2 (09:10→22:07)
[2022-09-11] MEDS: FUROSEMIDE 20 MG TABLET PO SCH ×2 (09:10→16:14)
[2022-09-11 16:42] LABS: Total Protein 24 Hr Ur Result 1980 MG/24HR (0-149.1); Total Volume,Urine 1100 ML (400-2000)
[2022-09-11] MEDS: ATORVASTATIN 40 MG TABLET PO SCH (22:06)
[2022-09-11] MEDS: GABAPENTIN 100 MG CAPSULE PO SCH (22:06)
[2022-09-11] MEDS: INSULIN GLARGINE 100 UNIT/ML SUBCUT SCH (22:08)
[2022-09-11] MEDS: MELATONIN 3 MG TABLET PO PRN (22:10)
[2022-09-12 05:17] LABS: Basophils % 0.6 % (0.0-0.8); Eosinophils # 0.2 10*3/uL (0.0-0.87); Eosinophils % 4.3 % (0.00-10.9); Hematocrit 27.5 VOL% (35.7-47.0); Hemoglobin 9.1 GM/DL (12.0-16.0); Immature Granulocytes % 0.7 %; Immature Granulocytes Absolute 0.04 #; Lymphocytes # 1.5 10*3/uL (1.4-4.0); Lymphocytes % 27.2 % (21.3-54.2); Mean Corpuscular HGB Conc 33.1 GM/DL (32-36); Mean Corpuscular Volume 84.1 FL (87-102); Mean Platelet Volume 9.3 FL (9.6-12.0); Monocytes # 0.5 10*3/uL (0.11-0.8); Monocytes % 9.7 % (1.7-12.7); Neutrophils % 57.5 % (38.7-73.9); Platelet Count 307 T/CUMM (130-400); Red Blood Count 3.27 MC/CUMM (3.8-5.5); Red Cell Distribution Width 13.3 % (9.3-17.3); White Blood Count 5.3 T/CUMM (4-12)
[2022-09-12 05:37] LABS: Osmolality,Calculated 291.7 MOS/KG (273-304); Potassium 3.9 MMOL/L (3.5-5.1)
[2022-09-12] MEDS: INSULIN LISPRO 100 UNIT/ML SUBCUT SCH ×4 (08:38→21:18)
[2022-09-12] MEDS: ASPIRIN EC 325 MG TABLET PO SCH (08:39)
[2022-09-12] MEDS: POTASSIUM CHLORIDE 10 MEQ TABLET PO SCH (08:39)
[2022-09-12] MEDS: MULTIVITAMIN (CENTRUM) TABLET PO SCH (08:39)
[2022-09-12] MEDS: PANTOPRAZOLE 40 MG TABLET PO SCH (08:39)
[2022-09-12] MEDS: FUROSEMIDE 20 MG TABLET PO SCH (08:40)
[2022-09-12] MEDS: MAGNESIUM OXIDE 400 MG TABLET PO SCH (08:40)
[2022-09-12] MEDS: metOLazone 5 MG TABLET PO SCH (08:40)
[2022-09-12] MEDS: carvediloL 25 MG TABLET PO SCH ×2 (08:40→21:18)
[2022-09-12] MEDS: ATORVASTATIN 40 MG TABLET PO SCH (21:17)
[2022-09-12] MEDS: INSULIN GLARGINE 100 UNIT/ML SUBCUT SCH (21:18)
[2022-09-12] MEDS: GABAPENTIN 100 MG CAPSULE PO SCH (21:18)
[2022-09-12] MEDS: MELATONIN 3 MG TABLET PO PRN (21:19)
[2022-09-13 06:13] LABS: Calcium 8.3 MG/DL (8.5-10.1); Osmolality,Calculated 291.5 MOS/KG (273-304); Potassium 4.2 MMOL/L (3.5-5.1)
[2022-09-13] MEDS: MULTIVITAMIN (CENTRUM) TABLET PO SCH (09:18)
[2022-09-13] MEDS: PANTOPRAZOLE 40 MG TABLET PO SCH (09:18)
[2022-09-13] MEDS: ASPIRIN EC 325 MG TABLET PO SCH (09:19)
[2022-09-13] MEDS: MAGNESIUM OXIDE 400 MG TABLET PO SCH (09:19)
[2022-09-13] MEDS: carvediloL 25 MG TABLET PO SCH (09:20)
[2022-09-13] MEDS: INSULIN LISPRO 100 UNIT/ML SUBCUT SCH ×2 (09:21→12:30)
[2022-09-13 17:23] VITALS: BP 136/86
[2022-09-15] MEDS ORDERED: ERGOCALCIFEROL 50,000 UNIT CAPSULE PO SCH (09:00)
== END 2022-09-13 16:31 | DRG 699 ==
LOC: SUATTDRO 19:37 → N.TELEN 19:37
PROVIDERS: ADMIT Internal Medicine; ATTEND Internal Medicine